=== PATIENT | male | born 1950 | race Caucasian/White ===

== ENCOUNTER 2020-04-01 10:09 | Inpatient (IN) ==
[2020-04-01] MEDS ORDERED: 0.9 % Sodium Chloride 1,000 ML IVC ONE (10:37)
[2020-04-01] MEDS ORDERED: *HR* HYDROmorphone (PF) 1 MG/ML SYRINGE IVP ONE ×2 (10:37→15:36)
[2020-04-01] MEDS ORDERED: Ondansetron 4 MG/2 ML VIAL IVP ONE (10:37)
[2020-04-01 10:52] LABS: Basophils # 0.1 K/mcL (0.0-0.2); Basophils % 0.5 %; Eosinophils % 0.1 %; Hematocrit 45.8 % (37.5-50.1); Hemoglobin 15.3 g/dL (12.9-16.9); Immature Granulocytes % 0.7 % (0-4); Lymphocytes # 1.4 K/mcL (0.6-4.6); Lymphocytes % 10.1 %; Mean Corpuscular HGB Conc 33.4 g/dL (31.6-35.5); Mean Corpuscular Hemoglobin 32.8 pg (28.0-33.3); Mean Corpuscular Volume 98.3 fL (83.0-100.0); Mean Platelet Volume 9.4 fL (9.4-12.4); Monocytes # 1.7 K/mcL (0.0-1.3); Monocytes % 12.4 %; Neutrophils # 10.3 K/mcL (1.6-8.9); Platelet Count 144 K/mcL (140-400); Red Blood Count 4.66 M/mcL (4.19-5.50); Segmented Neutrophils % 76.2 %; White Blood Count 13.6 K/mcL (4.3-11.1)
[2020-04-01 10:57] LABS: INR 1.2; Prothrombin Time 14.1 Seconds (9.4-12.1)
[2020-04-01 11:16] LABS: Troponin I 0.05 ng/mL (< 0.04)
[2020-04-01 11:22] LABS: Activated Partial Thrombo Time 23.9 Seconds (26.0-36.0)
[2020-04-01 11:26] LABS: Alanine Aminotransferase 14 Units/L (7-52); Albumin/Globulin Ratio 1.1 (1.1-2.2); Alkaline Phosphatase 64 Units/L (34-104); Aspartate Amino Transferase 20 Units/L (13-39); BUN/Creatinine Ratio 13 (6-26); Bilirubin,Direct 0.4 mg/dL (0.0-0.2); Bilirubin,Indirect 0.9 mg/dL (0.0-1.0); Bilirubin,Total 1.3 mg/dL (0.3-1.0); Blood Urea Nitrogen 18 mg/dL (8-23); Calcium 9.9 mg/dL (8.6-10.3); Carbon Dioxide 24 mEq/L (23-29); Chloride 99 mEq/L (98-107); Globulin 3.6 g/dL (2.4-3.5); Glucose 245 mg/dL (70-105); Lipase 10 Units/L (11-82); Osmolality,Calculated 292 (280-300); Sodium 136 mEq/L (136-145); Total Protein 7.6 g/dL (6.4-8.9); eGFR For African Americans > 60 (> 60); eGFR For Non-African Americans 51 (> 60)
[2020-04-01] MEDS ORDERED: Isovue-370 500 ML BOTTLE IVP ONE (12:38)
[2020-04-01 14:03] LABS: Bacteria,Urine Few per hpf (None-Few); Bilirubin,Urine Negative (Negative); Blood,Urine Moderate (Negative); Clarity,Urine Clear (Clear); Color,Urine Light-Orange (Yellow); Glucose,Urine (UA) 50 mg/dL (Normal); Hyaline Casts,Urine Many per lpf (None Seen); Ketones,Urine Negative (Negative); Leukocyte Esterase,Urine Negative (Negative); Mucus,Urine Few per lpf (None-Few); Nitrite,Urine Negative (Negative); Protein,Urine 200 mg/dL (Neg-Trace); RBC,Urine 15-30 per hpf (0-3); Specific Gravity,Urine > 1.030 (1.010-1.025); Squamous Epithelial Cell,Urine Few per hpf (None-Few); Urobilinogen,Urine Normal (Normal)
[2020-04-01] MEDS ORDERED: Ondansetron 4 MG/2 ML VIAL IVP PRN (15:35)
[2020-04-01] MEDS ORDERED: Naloxone 0.4 MG/ML INJ IVP PRN (15:35)
[2020-04-01] MEDS ORDERED: *HR* Dextrose 50 % in Water (Vial) 50 ML VIAL IVP PRN (15:39)
[2020-04-01] MEDS ORDERED: D5% in Water 1,000 ML IVC PRN (15:39)
[2020-04-01] MEDS ORDERED: Dextrose Gel 15 GM/37.5 ML TUBE PO PRN ×2 (15:39)
[2020-04-01] MEDS: Piperacillin/Tazobactam 3.375 GM in 0.9 % Sodium Chloride Mini Bag 100 ML IVPB SCH ×2 (17:12→23:48)
[2020-04-01] MEDS ORDERED: *HR* Enoxaparin 120 MG/0.8 ML SYRINGE SQ ONE (18:00)
[2020-04-01] MEDS ORDERED: *HR* Heparin 5,000 UNIT/ML VIAL SQ SCH (18:00)
[2020-04-01] MEDS: Insulin LISPRO 300 UNITS/3 ML VIAL SUBQ SCH (18:38)
[2020-04-01] MEDS ORDERED: Insulin DETEMIR 100 UNIT/ML X5UNITS SUBQ SCH (21:00)
[2020-04-02 04:27] LABS: Basophils # 0.1 K/mcL (0.0-0.2); Basophils % 0.5 %; Eosinophils # 0.1 K/mcL (0.0-0.6); Eosinophils % 0.6 %; Hematocrit 39.3 % (37.5-50.1); Hemoglobin 13.1 g/dL (12.9-16.9); Immature Granulocytes % 0.5 % (0-4); Lymphocytes # 0.9 K/mcL (0.6-4.6); Lymphocytes % 8.9 %; Mean Corpuscular HGB Conc 33.3 g/dL (31.6-35.5); Mean Corpuscular Hemoglobin 33.5 pg (28.0-33.3); Mean Corpuscular Volume 100.5 fL (83.0-100.0); Mean Platelet Volume 9.4 fL (9.4-12.4); Monocytes # 1.1 K/mcL (0.0-1.3); Monocytes % 10.5 %; Neutrophils # 8.1 K/mcL (1.6-8.9); Platelet Count 124 K/mcL (140-400); Red Blood Count 3.91 M/mcL (4.19-5.50); White Blood Count 10.3 K/mcL (4.3-11.1)
[2020-04-02 04:45] LABS: BUN/Creatinine Ratio 15 (6-26); Blood Urea Nitrogen 19 mg/dL (8-23); Calcium 8.8 mg/dL (8.6-10.3); Carbon Dioxide 24 mEq/L (23-29); Chloride 104 mEq/L (98-107); Glucose 165 mg/dL (70-105); Osmolality,Calculated 290 (280-300); Potassium 3.9 mEq/L (3.5-5.1); Sodium 137 mEq/L (136-145); eGFR For African Americans > 60 (> 60); eGFR For Non-African Americans 56 (> 60)
[2020-04-02] MEDS ORDERED: Ondansetron 4 MG/2 ML VIAL IVP PRN ×3 (07:16→14:06)
[2020-04-02] MEDS ORDERED: *HR* OxyCODONE Immed Rel 5 MG TABLET PO PRN ×2 (07:16→14:06)
[2020-04-02] MEDS ORDERED: Ringers Solution, Lactated 1,000 ML IVC SCH (07:30)
[2020-04-02] MEDS ORDERED: Isovue-300 50ML VIAL ONE (07:34)
[2020-04-02] MEDS ORDERED: CefOXitin 1,000 MG VIAL ONE (07:34)
[2020-04-02] MEDS ORDERED: Heparin 1,000 UNITS/500 mL 500 ML ONE (08:47)
[2020-04-02] MEDS ORDERED: carvediloL 6.25 MG TABLET PO SCH (08:54)
[2020-04-02] MEDS: Piperacillin/Tazobactam 3.375 GM in 0.9 % Sodium Chloride Mini Bag 100 ML IVPB SCH ×2 (08:59→15:56)
[2020-04-02] MEDS: Insulin LISPRO 300 UNITS/3 ML VIAL SUBQ SCH ×3 (09:03→20:24)
[2020-04-02] MEDS ORDERED: Albuterol 2.5 MG/3 ML NEBULIZER ONE (09:42)
[2020-04-02] MEDS ORDERED: *HR* Midazolam HCl 2 MG/2 ML VIAL ONE (09:43)
[2020-04-02] MEDS ORDERED: cefOXitin 1,000 MG, Sodium Chloride IRRigation 1,000 ML IR ONE ×2 (10:00→14:06)
[2020-04-02] MEDS ORDERED: *HR* Adenosine 6 MG/2 ML VIAL IVP ONE (10:07)
[2020-04-02] MEDS ORDERED: *HR* Vasopressin 20 UNIT/ML VIAL ONE (10:07)
[2020-04-02] MEDS ORDERED: *HR* Norepinephrine 4 MG/4 ML VIAL IVC ONE (10:07)
[2020-04-02] MEDS ORDERED: *HR* FentaNYL (PF) 100 MCG/2 ML VIAL ONE ×2 (10:09→10:53)
[2020-04-02] MEDS ORDERED: *HR* Propofol 200 MG/20 ML VIAL IVP ONE (10:11)
[2020-04-02] MEDS ORDERED: Albumin Human 5% 25.0 GM/500 ML IV.SOLN ONE (10:38)
[2020-04-02] MEDS ORDERED: *HR* Magnesium Sulfate 1 GM/2 ML VIAL ONE (10:48)
[2020-04-02] MEDS: *HR* HYDROmorphone PF 0.5 MG/0.5 ML SYRINGE IVP PRN ×4 (12:31→12:46)
[2020-04-02] MEDS ORDERED: Dextrose Gel 15 GM/37.5 ML TUBE PO PRN ×2 (14:06)
[2020-04-02] MEDS ORDERED: *HR* Dextrose 50 % in Water (Vial) 50 ML VIAL IVP PRN (14:06)
[2020-04-02] MEDS ORDERED: Naloxone 0.4 MG/ML INJ IVP PRN (14:06)
[2020-04-02] MEDS ORDERED: D5% in Water 1,000 ML IVC PRN (14:06)
[2020-04-02] MEDS ORDERED: Furosemide 20 MG TABLET PO PRN (14:18)
[2020-04-02] MEDS: Ringers Solution, Lactated 1,000 ML IVC SCH (15:57)
[2020-04-02] MEDS ORDERED: Insulin LISPRO 300 UNITS/3 ML VIAL SUBQ SCH (16:30)
[2020-04-02] MEDS: carvediloL 6.25 MG TABLET PO SCH (18:06)
[2020-04-02] MEDS: Budesonide/Formoterol 160/4.5 1 PUFF INH IH SCH (20:10)
[2020-04-02] MEDS: QUEtiapine Fumarate 100 MG TABLET PO SCH (20:20)
[2020-04-02] MEDS: Insulin DETEMIR 100 UNIT/ML X5UNITS SUBQ SCH (20:23)
[2020-04-02] MEDS ORDERED: INSULIN DEGLUDEC SQ SCH (21:00)
[2020-04-02] MEDS ORDERED: LIRAGLUTIDE SQ SCH (21:00)
[2020-04-03] MEDS: Piperacillin/Tazobactam 3.375 GM in 0.9 % Sodium Chloride Mini Bag 100 ML IVPB SCH ×3 (00:59→16:43)
[2020-04-03] MEDS ORDERED: Morphine Sulfate 2 MG/ML SYRINGE IVP ONE (01:17)
[2020-04-03 05:15] LABS: Basophils % 0.2 %; Eosinophils % 0.4 %; Immature Granulocytes % 0.5 % (0-4); Lymphocytes % 9.2 %; Mean Corpuscular HGB Conc 33.3 g/dL (31.6-35.5); Mean Corpuscular Hemoglobin 33.6 pg (28.0-33.3); Mean Corpuscular Volume 100.8 fL (83.0-100.0); Mean Platelet Volume 9.4 fL (9.4-12.4); Monocytes # 1.4 K/mcL (0.0-1.3); Monocytes % 13.5 %; Platelet Count 119 K/mcL (140-400); Red Blood Count 3.57 M/mcL (4.19-5.50); Red Cell Distribution Width 12.8 % (11.5-14.5); Segmented Neutrophils % 76.2 %; White Blood Count 10.5 K/mcL (4.3-11.1)
[2020-04-03 05:49] LABS: BUN/Creatinine Ratio 17 (6-26); Blood Urea Nitrogen 24 mg/dL (8-23); Calcium 8.4 mg/dL (8.6-10.3); Carbon Dioxide 22 mEq/L (23-29); Chloride 103 mEq/L (98-107); Glucose 173 mg/dL (70-105); Osmolality,Calculated 286 (280-300); Phosphorous 3.2 mg/dL (2.7-4.5); Potassium 4.1 mEq/L (3.5-5.1); Sodium 134 mEq/L (136-145); eGFR For African Americans > 60 (> 60); eGFR For Non-African Americans 51 (> 60)
[2020-04-03] MEDS: Budesonide/Formoterol 160/4.5 1 PUFF INH IH SCH ×2 (08:08→20:19)
[2020-04-03] MEDS ORDERED: *HR* Rivaroxaban 15 MG TABLET PO SCH (09:00)
[2020-04-03] MEDS: Cholecalciferol (D-3) 1,000 UNIT (25MCG) TABLET PO SCH (09:37)
[2020-04-03] MEDS: carvediloL 6.25 MG TABLET PO SCH ×2 (09:37→16:45)
[2020-04-03] MEDS: Insulin LISPRO 300 UNITS/3 ML VIAL SUBQ SCH ×4 (09:38→21:06)
[2020-04-03] MEDS: Morphine Sulfate 2 MG/ML SYRINGE IVP PRN ×3 (09:46→22:20)
[2020-04-03] MEDS: Ringers Solution, Lactated 1,000 ML IVC SCH (14:53)
[2020-04-03] MEDS: QUEtiapine Fumarate 100 MG TABLET PO SCH (21:01)
[2020-04-03] MEDS: Insulin DETEMIR 100 UNIT/ML X5UNITS SUBQ SCH (21:07)
[2020-04-04] MEDS: Piperacillin/Tazobactam 3.375 GM in 0.9 % Sodium Chloride Mini Bag 100 ML IVPB SCH ×3 (01:50→16:42)
[2020-04-04] MEDS: Morphine Sulfate 2 MG/ML SYRINGE IVP PRN (03:20)
[2020-04-04 06:45] LABS: Hematocrit 37.6 % (37.5-50.1); Hemoglobin 12.2 g/dL (12.9-16.9); Mean Corpuscular HGB Conc 32.4 g/dL (31.6-35.5); Mean Corpuscular Hemoglobin 32.2 pg (28.0-33.3); Mean Corpuscular Volume 99.2 fL (83.0-100.0); Mean Platelet Volume 9.4 fL (9.4-12.4); Platelet Count 150 K/mcL (140-400); Red Blood Count 3.79 M/mcL (4.19-5.50)
[2020-04-04 07:03] LABS: BUN/Creatinine Ratio 21 (6-26); Blood Urea Nitrogen 26 mg/dL (8-23); Calcium 8.8 mg/dL (8.6-10.3); Carbon Dioxide 22 mEq/L (23-29); Chloride 102 mEq/L (98-107); Glucose 174 mg/dL (70-105); Osmolality,Calculated 287 (280-300); Sodium 134 mEq/L (136-145); eGFR For African Americans > 60 (> 60); eGFR For Non-African Americans 57 (> 60)
[2020-04-04] MEDS ORDERED: Acetaminophen 325 MG TABLET PO PRN (08:33)
[2020-04-04] MEDS: carvediloL 6.25 MG TABLET PO SCH ×2 (08:47→16:42)
[2020-04-04] MEDS: Cholecalciferol (D-3) 1,000 UNIT (25MCG) TABLET PO SCH (08:48)
[2020-04-04] MEDS: Insulin LISPRO 300 UNITS/3 ML VIAL SUBQ SCH ×4 (08:48→21:23)
[2020-04-04] MEDS: Budesonide/Formoterol 160/4.5 1 PUFF INH IH SCH ×2 (10:23→20:31)
[2020-04-04] MEDS: *HR* OxyCODONE Immed Rel 5 MG TABLET PO PRN ×2 (14:53→21:24)
[2020-04-04] MEDS: Ipratropium/Albuterol Neb 3 ML IH SCH ×4 (15:13→23:23)
[2020-04-04] MEDS: *HR* Rivaroxaban 15 MG TABLET PO SCH (16:42)
[2020-04-04] MEDS: QUEtiapine Fumarate 100 MG TABLET PO SCH (21:24)
[2020-04-04] MEDS: Insulin DETEMIR 100 UNIT/ML X5UNITS SUBQ SCH (21:24)
[2020-04-05] MEDS: Piperacillin/Tazobactam 3.375 GM in 0.9 % Sodium Chloride Mini Bag 100 ML IVPB SCH ×3 (00:59→16:32)
[2020-04-05] MEDS: Ipratropium/Albuterol Neb 3 ML IH SCH ×6 (03:17→23:25)
[2020-04-05 05:59] LABS: Hematocrit 35.4 % (37.5-50.1); Hemoglobin 11.3 g/dL (12.9-16.9); Mean Corpuscular HGB Conc 31.9 g/dL (31.6-35.5); Mean Corpuscular Hemoglobin 32.9 pg (28.0-33.3); Mean Corpuscular Volume 103.2 fL (83.0-100.0); Mean Platelet Volume 10.7 fL (9.4-12.4); Platelet Count 136 K/mcL (140-400); Red Blood Count 3.43 M/mcL (4.19-5.50); White Blood Count 7.5 K/mcL (4.3-11.1)
[2020-04-05 06:23] LABS: BUN/Creatinine Ratio 23 (6-26); Blood Urea Nitrogen 29 mg/dL (8-23); Calcium 8.8 mg/dL (8.6-10.3); Carbon Dioxide 22 mEq/L (23-29); Chloride 105 mEq/L (98-107); Glucose 129 mg/dL (70-105); Osmolality,Calculated 288 (280-300); Potassium 3.6 mEq/L (3.5-5.1); Sodium 135 mEq/L (136-145); eGFR For African Americans > 60 (> 60); eGFR For Non-African Americans 57 (> 60)
[2020-04-05] MEDS: Insulin LISPRO 300 UNITS/3 ML VIAL SUBQ SCH ×4 (06:44→21:38)
[2020-04-05] MEDS: *HR* OxyCODONE Immed Rel 5 MG TABLET PO PRN ×2 (06:45→16:32)
[2020-04-05] MEDS: Budesonide/Formoterol 160/4.5 1 PUFF INH IH SCH ×2 (07:21→20:50)
[2020-04-05] MEDS: Cholecalciferol (D-3) 1,000 UNIT (25MCG) TABLET PO SCH (10:35)
[2020-04-05] MEDS: carvediloL 6.25 MG TABLET PO SCH ×2 (10:36→16:32)
[2020-04-05] MEDS: Ondansetron ODT 4 MG TAB.RAPDIS SL PRN (11:26)
[2020-04-05] MEDS ORDERED: Furosemide 40 MG/4 ML VIAL IVP ONE (14:02)
[2020-04-05] MEDS: predniSONE 20 MG TABLET PO SCH (14:29)
[2020-04-05] MEDS: *HR* Rivaroxaban 15 MG TABLET PO SCH (16:32)
[2020-04-05] MEDS: QUEtiapine Fumarate 100 MG TABLET PO SCH (21:33)
[2020-04-05] MEDS: Insulin DETEMIR 100 UNIT/ML X5UNITS SUBQ SCH (21:34)
[2020-04-06] MEDS: Piperacillin/Tazobactam 3.375 GM in 0.9 % Sodium Chloride Mini Bag 100 ML IVPB SCH ×2 (02:40→10:47)
[2020-04-06] MEDS: *HR* OxyCODONE Immed Rel 5 MG TABLET PO PRN ×2 (02:41→11:00)
[2020-04-06] MEDS: Ipratropium/Albuterol Neb 3 ML IH SCH ×4 (04:40→15:26)
[2020-04-06 05:39] LABS: Hematocrit 39.4 % (37.5-50.1); Hemoglobin 12.5 g/dL (12.9-16.9); Mean Corpuscular HGB Conc 31.7 g/dL (31.6-35.5); Mean Corpuscular Hemoglobin 31.9 pg (28.0-33.3); Mean Corpuscular Volume 100.5 fL (83.0-100.0); Mean Platelet Volume 9.6 fL (9.4-12.4); Platelet Count 214 K/mcL (140-400); Red Blood Count 3.92 M/mcL (4.19-5.50); White Blood Count 9.5 K/mcL (4.3-11.1)
[2020-04-06 06:00] LABS: BUN/Creatinine Ratio 22 (6-26); Blood Urea Nitrogen 29 mg/dL (8-23); Calcium 9.5 mg/dL (8.6-10.3); Carbon Dioxide 28 mEq/L (23-29); Chloride 100 mEq/L (98-107); Glucose 207 mg/dL (70-105); Osmolality,Calculated 300 (280-300); Sodium 139 mEq/L (136-145); eGFR For African Americans > 60 (> 60); eGFR For Non-African Americans 53 (> 60)
[2020-04-06] MEDS: Budesonide/Formoterol 160/4.5 1 PUFF INH IH SCH (07:41)
[2020-04-06 08:51] VITALS: BP 127/71
[2020-04-06] MEDS: Insulin LISPRO 300 UNITS/3 ML VIAL SUBQ SCH ×2 (10:59→12:14)
[2020-04-06] MEDS: carvediloL 6.25 MG TABLET PO SCH ×2 (11:00→16:08)
[2020-04-06] MEDS: predniSONE 20 MG TABLET PO SCH (11:01)
[2020-04-06] MEDS: Cholecalciferol (D-3) 1,000 UNIT (25MCG) TABLET PO SCH (11:01)
[2020-04-06] MEDS: *HR* Rivaroxaban 15 MG TABLET PO SCH (16:08)
[2020-04-06] MEDS: Ondansetron ODT 4 MG TAB.RAPDIS SL PRN (16:17)
== END 2020-04-06 17:20 | disposition other institution (70) | DRG 853 ==
LOC: EMEROOARM 10:09 → 3ANU 10:09 → SUATTDRO 15:33 → 3ANU 16:28 → SUATTDRO 04-02 14:37
PROVIDERS: ADMIT Internal Medicine; ATTEND Family Medicine

== ENCOUNTER 2021-08-27 09:18 | Observation (INO) ==
[2021-08-27 10:08] LABS: Basophils # 0.1 K/mcL (0.0-0.2); Eosinophils # 0.2 K/mcL (0.0-0.6); Eosinophils % 2.5 %; Hematocrit 42.8 % (37.5-50.1); Hemoglobin 14.2 g/dL (12.9-16.9); Immature Granulocytes % 0.6 % (0-4); Lymphocytes # 1.7 K/mcL (0.6-4.6); Lymphocytes % 24.2 %; Mean Corpuscular HGB Conc 33.2 g/dL (31.6-35.5); Mean Corpuscular Hemoglobin 33.9 pg (28.0-33.3); Mean Corpuscular Volume 102.1 fL (83.0-100.0); Mean Platelet Volume 9.1 fL (9.4-12.4); Monocytes # 0.7 K/mcL (0.0-1.3); Monocytes % 9.7 %; Neutrophils # 4.2 K/mcL (1.6-8.9); Platelet Count 126 K/mcL (140-400); Red Blood Count 4.19 M/mcL (4.19-5.50); Red Cell Distribution Width 12.9 % (11.5-14.5); White Blood Count 6.8 K/mcL (4.3-11.1)
[2021-08-27 10:23] LABS: BUN/Creatinine Ratio 19 (6-26); Blood Urea Nitrogen 26 mg/dL (8-23); Calcium 9.4 mg/dL (8.6-10.3); Carbon Dioxide 28 mEq/L (23-29); Chloride 105 mEq/L (98-107); Glucose 132 mg/dL (70-105); Osmolality,Calculated 293 (280-300); Potassium 4.7 mEq/L (3.5-5.1); Sodium 138 mEq/L (136-145); eGFR For African Americans > 60 (> 60); eGFR For Non-African Americans 50 (> 60)
[2021-08-27 10:24] LABS: Troponin I < 0.03 ng/mL (< 0.04)
[2021-08-27] MEDS ORDERED: Ondansetron 4 MG/2 ML VIAL IVP PRN (10:56)
[2021-08-27] MEDS ORDERED: Melatonin 3 MG TABLET PO PRN (10:56)
[2021-08-27] MEDS ORDERED: Naloxone 0.4 MG/ML INJ IVP PRN (10:56)
[2021-08-27] MEDS ORDERED: Dextrose Gel 15 GM/37.5 ML TUBE PO PRN ×2 (12:01)
[2021-08-27] MEDS ORDERED: D5% in Water 1,000 ML IVC PRN (12:01)
[2021-08-27] MEDS ORDERED: *HR* Dextrose 50 % in Water (Syg) 50 ML SYRINGE IVP PRN (12:01)
[2021-08-27] MEDS ORDERED: Perflutren Lipid Microsphere 1.3 ML in 0.9 % Sodium Chloride 8.7 ML IVP PRN (12:03)
[2021-08-27] MEDS ORDERED: Amiodarone Premix 360 MG/200 ML BAG IVC ONE (12:42)
[2021-08-27] MEDS ORDERED: Amiodarone Premix 150 MG/100 ML BAG IVPB ONE (12:42)
[2021-08-27 14:01] LABS: Thyroid Stimulating Hormone 1.843 mcIU/mL (0.340-5.600)
[2021-08-27] MEDS: carvediloL 25 MG TABLET PO SCH (17:33)
[2021-08-27] MEDS: Insulin LISPRO 300 UNITS/3 ML VIAL SUBQ SCH (17:52)
[2021-08-27] MEDS ORDERED: Amiodarone Premix 360 MG/200 ML BAG IVC SCH (18:43)
[2021-08-27] MEDS ORDERED: Insulin LISPRO 300 UNITS/3 ML VIAL SUBQ SCH (21:00)
[2021-08-27] MEDS ORDERED: Insulin DETEMIR 100 UNIT/ML X5UNITS SUBQ SCH (21:00)
[2021-08-27] MEDS ORDERED: ALPRAZolam 0.5 MG TABLET PO ONE (21:35)
[2021-08-28 03:13] LABS: Basophils # 0.1 K/mcL (0.0-0.2); Basophils % 0.8 %; Eosinophils # 0.2 K/mcL (0.0-0.6); Eosinophils % 2.7 %; Hematocrit 38.5 % (37.5-50.1); Immature Granulocytes % 0.6 % (0-4); Lymphocytes # 2.2 K/mcL (0.6-4.6); Lymphocytes % 35.3 %; Mean Corpuscular HGB Conc 32.7 g/dL (31.6-35.5); Mean Corpuscular Hemoglobin 33.5 pg (28.0-33.3); Mean Corpuscular Volume 102.4 fL (83.0-100.0); Mean Platelet Volume 9.5 fL (9.4-12.4); Monocytes # 0.7 K/mcL (0.0-1.3); Monocytes % 11.4 %; Neutrophils # 3.1 K/mcL (1.6-8.9); Platelet Count 120 K/mcL (140-400); Red Blood Count 3.76 M/mcL (4.19-5.50); Red Cell Distribution Width 12.5 % (11.5-14.5); Segmented Neutrophils % 49.2 %; White Blood Count 6.3 K/mcL (4.3-11.1)
[2021-08-28 03:16] LABS: Hemoglobin 12.6 g/dL (12.9-16.9)
[2021-08-28 03:33] LABS: Alanine Aminotransferase 11 Units/L (7-52); Albumin 3.5 g/dL (3.5-5.7); Albumin/Globulin Ratio 1.3 (1.1-2.2); Alkaline Phosphatase 48 Units/L (34-104); Aspartate Amino Transferase 13 Units/L (13-39); BUN/Creatinine Ratio 21 (6-26); Bilirubin,Total 0.4 mg/dL (0.3-1.0); Blood Urea Nitrogen 24 mg/dL (8-23); Calcium 8.6 mg/dL (8.6-10.3); Carbon Dioxide 27 mEq/L (23-29); Chloride 107 mEq/L (98-107); Cholesterol 129 mg/dL (< 200); Globulin 2.6 g/dL (2.4-3.5); Glucose 130 mg/dL (70-105); HDL Cholesterol 43 mg/dL (40-59); LDL Cholesterol,Calculated 65 mg/dL (< 100); Magnesium 2.1 mg/dL (1.6-2.6); Osmolality,Calculated 290 (280-300); Phosphorous 3.4 mg/dL (2.7-4.5); Potassium 4.3 mEq/L (3.5-5.1); Sodium 137 mEq/L (136-145); Total Protein 6.1 g/dL (6.4-8.9); Triglycerides 107 mg/dL (< 150); eGFR For African Americans > 60 (> 60); eGFR For Non-African Americans > 60 (> 60)
[2021-08-28] MEDS: carvediloL 25 MG TABLET PO SCH (08:53)
[2021-08-28] MEDS: Insulin LISPRO 300 UNITS/3 ML VIAL SUBQ SCH ×2 (08:58→12:40)
[2021-08-28] MEDS ORDERED: lisinopriL 5 MG TABLET PO SCH (09:00)
[2021-08-28] MEDS ORDERED: Furosemide 20 MG TABLET PO SCH (09:00)
[2021-08-28 11:28] VITALS: BP 100/73; PULSE 76; TEMP 98.2; O2SAT 97
[2021-08-28] MEDS ORDERED: *HR* Rivaroxaban 15 MG TABLET PO SCH (17:00)
[2021-08-28] MEDS ORDERED: ALPRAZolam 0.5 MG TABLET PO SCH (21:00)
== END 2021-08-28 14:50 | disposition home or self-care (01) ==
LOC: EMEROOARM 09:18 → 3NENU 09:18 → SUATTDRO 11:08 → 3NENU 12:26
PROVIDERS: ADMIT Hospitalist; ATTEND Internal Medicine

== ENCOUNTER 2021-10-20 07:52 | Inpatient (IN) ==
[2021-10-20] MEDS ORDERED: 0.9 % Sodium Chloride 1,000 ML ONE ×2 (08:53→09:05)
[2021-10-20] MEDS ORDERED: D5% in Water 100 ML ONE (09:05)
[2021-10-20] MEDS ORDERED: Vancomycin 1,000 MG VIAL ONE (09:05)
[2021-10-20] MEDS ORDERED: 0.9 % Sodium Chloride 250 ML ONE (09:06)
[2021-10-20] MEDS ORDERED: Heparin 15,000 UNIT in 0.9 % Sodium Chloride 500 ML IV ONE (09:30)
[2021-10-20] MEDS ORDERED: Norepinephrine 4 MG in 0.9 % Sodium Chloride 250 ML IVC PRN (09:30)
[2021-10-20] MEDS ORDERED: Buckersberg's Blood Cardioplegia PF ONE (09:30)
[2021-10-20] MEDS ORDERED: CeFAZolin Syr 2,000MG/20 ML 2,000 MG/20 ML SYRINGE IVPB ONE (09:30)
[2021-10-20] MEDS ORDERED: del Nido Cardioplegia Solution PF ONE ×2 (09:30)
[2021-10-20] MEDS ORDERED: *HR* Midazolam HCl 2 MG/2 ML VIAL ONE (11:09)
[2021-10-20] MEDS ORDERED: *HR* FentaNYL (PF) 100 MCG/2 ML VIAL ONE (11:09)
[2021-10-20] MEDS ORDERED: Protamine Sulfate 50 MG/5 ML VIAL IVP ONE ×2 (11:10→11:12)
[2021-10-20] MEDS ORDERED: Heparin 1,000 UNITS/500 mL 1,500 ML ONE (11:11)
[2021-10-20] MEDS ORDERED: 0.9 % Sodium Chloride 2,000 ML ONE (11:11)
[2021-10-20] MEDS ORDERED: *HR* Heparin 10,000 UNIT/10 ML VIAL ONE (11:11)
[2021-10-20] MEDS ORDERED: SULFUR HEXAFLUORIDE MICROSPHR 25 MG VIAL IVP PRN (11:58)
[2021-10-20] MEDS ORDERED: *HR* Propofol 200 MG/20 ML VIAL IVP ONE (13:20)
[2021-10-20] MEDS ORDERED: *HR* Propofol 500 MG/50 ML BOTTLE IVP ONE (13:20)
[2021-10-20] MEDS: 0.9 % Sodium Chloride 1,000 ML IVC SCH (18:38)
[2021-10-20] MEDS: Budesonide/Formoterol 160/4.5 1 PUFF INH IH SCH (20:30)
[2021-10-20] MEDS: carvediloL 25 MG TABLET PO SCH (20:45)
[2021-10-20] MEDS ORDERED: QUEtiapine Fumarate 100 MG TABLET PO SCH (21:00)
[2021-10-20] MEDS ORDERED: ALPRAZolam 0.5 MG TABLET PO SCH (21:00)
[2021-10-21 01:32] LABS: Eosinophils % 1.8 %; Hematocrit 37.5 % (37.5-50.1)
[2021-10-21 01:34] LABS: Basophils # 0.1 K/mcL (0.0-0.2); Eosinophils # 0.1 K/mcL (0.0-0.6); Hemoglobin 12.3 g/dL (12.9-16.9); Immature Granulocytes % 0.6 % (0-4); Immature Platelets 2.1 % (1.1-6.1); Lymphocytes % 15.6 %; Mean Corpuscular HGB Conc 32.8 g/dL (31.6-35.5); Mean Corpuscular Hemoglobin 33.5 pg (28.0-33.3); Mean Corpuscular Volume 102.2 fL (83.0-100.0); Mean Platelet Volume 9.4 fL (9.4-12.4); Monocytes # 0.6 K/mcL (0.0-1.3); Monocytes % 10.4 %; Neutrophils # 4.4 K/mcL (1.6-8.9); Red Blood Count 3.67 M/mcL (4.19-5.50); Red Cell Distribution Width 12.5 % (11.5-14.5); Segmented Neutrophils % 70.6 %; White Blood Count 6.2 K/mcL (4.3-11.1)
[2021-10-21 01:44] LABS: INR 1.3
[2021-10-21 01:51] LABS: BUN/Creatinine Ratio 24 (6-26); Blood Urea Nitrogen 28 mg/dL (8-23); Calcium 8.4 mg/dL (8.6-10.3); Carbon Dioxide 22 mEq/L (23-29); Chloride 111 mEq/L (98-107); Glucose 132 mg/dL (70-105); Osmolality,Calculated 295 (280-300); Potassium 4.7 mEq/L (3.5-5.1); Sodium 139 mEq/L (136-145); eGFR For African Americans > 60 (> 60); eGFR For Non-African Americans > 60 (> 60)
[2021-10-21 02:00] LABS: Platelet Count 87 K/mcL (140-400)
[2021-10-21 02:02] LABS: Macrocytosis Present (Not Present); Platelet Estimate Decreased (Normal)
[2021-10-21] MEDS: 0.9 % Sodium Chloride 1,000 ML IVC SCH (03:32)
[2021-10-21] MEDS ORDERED: Furosemide 20 MG TABLET PO SCH (09:00)
[2021-10-21] MEDS ORDERED: *HR* Rivaroxaban 15 MG TABLET PO SCH (09:00)
[2021-10-21] MEDS: carvediloL 25 MG TABLET PO SCH (09:39)
[2021-10-21] MEDS: Budesonide/Formoterol 160/4.5 1 PUFF INH IH SCH (09:53)
[2021-10-21 12:00] VITALS: O2SAT 95
[2021-10-21 12:06] VITALS: BP 163/93; PULSE 86; TEMP 98.1
== END 2021-10-21 13:21 | disposition home or self-care (01) | DRG 267 ==
LOC: INVDIALAB 07:52 → 2NNU 07:52 → INVDIALAB 10-21 12:44 → 2NNU 10-22 11:58
PROVIDERS: ADMIT Thoracic Surgery (Cardiothoracic Vascular Surgery); ATTEND Thoracic Surgery (Cardiothoracic Vascular Surgery)